=== PATIENT | male | born 1990 | race African-American/Black ===

== ENCOUNTER 2018-10-30 18:41 | Inpatient (IN) | payer MEDICAID ==
[2018-10-30] MEDS ORDERED: OLANZapine DISINTEGR 5 MG TAB PO ONE (19:01)
[2018-10-30 19:10] LABS: PLATELET COUNT 260 10^3/uL (150-400)
--- NOTE | 2018-10-30 20:48 | EDPHY ---
H & P Stated Complaint: SI - M1 Hold. - Personal History Current Tetanus Diphtheria and Acellular Pertussis (TDAP): Unsure - Medical/Surgical History Hx Asthma: No Hx Chronic Respiratory Disease: No Hx Diabetes: No Hx Cardiac Disease: No Hx Renal Disease: No Hx Cirrhosis: No Hx Alcoholism: No Hx HIV/AIDS: No Hx Splenectomy or Spleen Trauma: No Other PMH: Bipolar. Schitzophrenia. Time Seen by Provider: 10/30/18 18:44 HPI/ROS: Chief complaint: Suicidal ideation, on mental health hold History of present illness: This is a 27-year-old male who is brought to the emergency department by EMS and police on a mental health hold. Patient was apparently attempting to gain access to the homeless intermediate for the evening, he was denied injury. Apparently he became upset and started to state he was going to kill himself. He repeated this over and over. On my evaluation he states he does want to kill himself. He states he wants to"cut his head off, put it in a small business banking officer, and port down his neck." As I speak with him he speaks tangentially, it is hard to keep him on track. He does state he has a history of mental health illness, he has been on risperidone and Zyprexa but states he has not taken medication and at least a year. He denies illness or injury. Review of systems: A 10 point review of systems was obtained and other than described above was negative (Channing Grimes) - Physical Exam Exam: General Appearance: Alert, nontoxic. Eyes: Pupils equal and round no pallor or injection. ENT, Mouth: Mucous membranes moist. Respiratory: There are no retractions, lungs are clear to auscultation. Cardiovascular: Regular rate and rhythm. Gastrointestinal: Abdomen is soft and non tender, no masses, bowel sounds normal. Neurological: Alert. Strength and sensation intact and symmetrical. Skin: Warm and dry, no rashes. Musculoskeletal: Neck is supple non tender. Extremities are symmetrical, full range of motion. Psychiatric: Patient appears sad, pressured tangential speech (Channing Grimes) Constitutional: Initial Vital Signs Temperature (C) 36.7 C 10/30/18 18:44 Heart Rate 96 10/30/18 18:44 Respiratory Rate 18 10/30/18 18:44 Blood Pressure 141/102 H 10/30/18 18:44 O2 Sat (%) 95 10/30/18 18:44 O2 Delivery Mode Room Air Allergies/Adverse Reactions: No Known Allergies Allergy (Unverified 10/30/18 18:50) Home Medications: Medication Instructions Recorded Risperdal 10/30/18 Zyprexa 10/30/18 Medical Decision Making ED Course/Re-evaluation: Patient seen under the supervision of my secondary supervising physician Dr. Jimy Valdez. Patient is brought to the emergency department on a mental health hold for suicidal ideation. He is medically cleared for evaluation but there is methamphetamine and cocaine in his system, he will have to be housed overnight to allow this to clear before a mental health evaluation could be performed. Care of patient turned over to my attending physician Dr. Margie [place] at the end of shift. (Channing Grimes) 6:50 a.m.- Patient stable throughout my shift. He is awaiting mental health evaluation which was delayed because of positive urine toxicology. The case is signed out to Dr. Calderon. (Margie [place]) 1605: Patient been accepted by Dr. Garcia. EMTALA form filled out. [facility] transfer will bet set up. (Jimy Valdez) Differential Diagnosis: Included but not limited to substance abuse, anxiety, bipolar, schizophrenia, depression (Channing Grimes) - Data Points Laboratory Results: Laboratory Results 10/30/18 18:50 10/30/18 18:50 Medications Given: Discontinued Medications Olanzapine (Zyprexa Zydis) 10 mg PO EDNOW ONE Stop: 10/30/18 19:02 Last Admin: 10/30/18 19:08 Dose: 10 mg Departure - Departure Disposition: [facility] IP Clinical Impression: Suicidal ideation Condition: Fair Referrals: Patient,NotPresent [Unknown] - As per Instructions
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
--- NOTE | 2018-10-31 16:13 | ASMTTCLDSP ---
TLC Discharge Disposition Disposition: Answers: Admit Discharge Concerns/Recommendations: Notes: In consultation with [facility] ED physician,Dr [place] and on-call psychiatrist, Dr Schwartz , both concurred that Pt does appear to meet 27-65 criteria requiring psychiatric hospitalization as Pt does appear to be an imminent risk of harm to self due to a mental illness condition Was patient given the Answers: Yes Inpatient Behavioral Health Prohibited Belongings List while in the ED? For inpatient Dr Garcia admission, the following psychiatrist agreed to accept patient for admission to Behavioral Health ([facility]): Type of Hold: Answers: Involuntary Transportation Hold Date Signed: 10/31/2018 04:13 PM Electronically Signed By:Sadie Corrales
[2018-10-31] MEDS ORDERED: MAG HYDROX/AL HYDROX/SIMETH 30 ML UDCUP PO PRN (18:30)
[2018-10-31] MEDS ORDERED: OLANZapine DISINTEGR 10 MG TAB PO PRN (18:30)
[2018-10-31] MEDS ORDERED: ACETAMINOPHEN 325 MG TAB PO PRN (18:30)
[2018-10-31] MEDS ORDERED: NICOTINE POLACRILEX 2 MG GUM B PRN (18:30)
[2018-10-31] MEDS ORDERED: MAGNESIUM HYDROXIDE 30 ML UDCUP PO PRN (18:30)
[2018-10-31] MEDS ORDERED: LORazepam 0.5 MG TAB PO PRN ×2 (18:30→18:32)
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
--- NOTE | 2018-11-01 13:35 | ASMTCMCOM ---
CM Note CM Note Notes: CC sent over referral to [facility] for intake appt for out-patient services.* Waiting to hear back.* Date Signed: 11/01/2018 01:35 PM Electronically Signed By:Saulo Fernández
--- NOTE | 2018-11-01 14:19 | PDMN ---
Medical Necessity Medical necessity: Pt meets IP criteria as of 10/31/2018 per and [facility]-IP (Schizophrenia Spectrum Disorders: IP care); est los > 2 mn, pt presents on M1 hold due to being an imminent danger to himself; Hx Schizoaffective disorder, depressive type.
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
--- NOTE | 2018-11-01 17:25 | SOAPPROG ---
SOAP Progress Note Assessment/Plan: Assessment: Plan: Subjective: CTSP due to agitation and demand for AMA discharge. He states, "I don't want your help. I want to leave." I spoke with pt's primary provider, Francisco Javier Carlos who agrees that pt is stable and able to discharge. I asked pt to stay until tomorrow to allow for an adequate discharge plan. He declines. Will d/c AMA at this time. Objective: Vital Signs Temp Pulse Resp BP Pulse Ox 36.8 C 113 H 14 104/62 95 11/01/18 06:00 11/01/18 06:00 11/01/18 06:00 11/01/18 06:00 11/01/18 06:00 ICD10 Worksheet Patient Problems: Problems Problem Status Onset Suicidal ideation Acute
--- NOTE | 2018-11-01 22:21 | BCON ---
INTERNAL MEDICINE CONSULTATION DATE OF CONSULTATION: 11/01/2018 REASON FOR REFERRAL: Medical clearance for inpatient behavioral health stay. HISTORY OF PRESENT ILLNESS: This patient came to the emergency department on an M1 hold brought in by police. He had been denied access to the homeless nursing home two days ago, and he became upset and stated that he was going to kill himself. In the emergency department he was treated with a dose of olanzapine, and further history was able to be obtained. He was evaluated by the mental health team and admitted for further psychiatric care. Currently, he is without any acute complaints. PAST MEDICAL HISTORY: 1. Mental health issues with diagnoses recorded in the chart of schizophrenia and bipolar disorder. 2. Scoliosis. PAST SURGICAL HISTORY: He has had back surgery for scoliosis when he was a child. MEDICATIONS: He was on no medications. He reported he had previously been prescribed risperidone and olanzapine but had not been taking any for approximately a year. SOCIAL HISTORY: He is homeless. He is a former smoker. He denies alcohol use. His drug screen was positive for amphetamines and cocaine, and he reported to Case Management that he uses the amphetamines to stay awake at night as he is homeless. FAMILY HISTORY: Noncontributory. REVIEW OF SYSTEMS: He feels thirsty and hungry. He has pain all over, but it is not debilitating. He denies fevers or chills. He denies cough or dyspnea. He denies nausea, vomiting, constipation, or diarrhea. He denies dysuria or urinary urgency or frequency, and otherwise a 10-point review of systems is negative. PHYSICAL EXAM: VITAL SIGNS: Blood pressure this morning was 104/62, heart rate was 113, respiratory rate was 14, oxygen saturation was 95% on room air. Temperature was 36.8 degrees centigrade. His weight is 109 kg for a body mass index of 29. I am not sure if that weight is correct as he does not appear to be overweight. GENERAL: This is a well-nourished, well-developed man, napping in bed, easily awakened, cooperative and in no acute distress. HEENT: Extraocular movements are intact. Mucous membranes are moist. Dentition is in good condition. NECK: Supple. HEART: There is a regular rate and rhythm with no murmurs, rubs, or gallops. He is tachycardic. LUNGS: Clear to auscultation bilaterally. ABDOMEN: Benign. EXTREMITIES: There is no cyanosis , clubbing, or edema. NEUROLOGIC: He is alert. Orientation was not checked. Cranial nerves 2-12 are grossly intact. There is no focal weakness. Sensation is intact to light touch, and gait is normal. LABORATORY STUDIES: From the emergency department, CBC showed mild anemia with a hemoglobin of 13.4 and hematocrit of 38.2. He was microcytic with an MCV of 78.9. Serum chemistry showed hyponatremia with a sodium of 133. Otherwise renal function, electrolytes, and liver function tests were normal. Toxicology screen in the serum was negative for salicylates, acetaminophen, or ethyl alcohol and in the urine was non-negative for amphetamines and cocaine but otherwise negative for substances of abuse. ASSESSMENT/RECOMMENDATIONS: 1. Mental health issues pending further evaluation per Psychiatry and the mental health team. 2. Tachycardia. Possibly he is dehydrated. Encouraged oral fluid intake and monitor. If he remains tachycardic, would get an EKG. I will add a TSH on to the labs that were drawn two days ago to rule out hyperthyroidism as a contributing etiology. 3. Hyponatremia of unclear etiology. I will encourage normal oral intake, and I will repeat a basic metabolic profile in the morning. 4. Anemia with indices consistent with iron deficiency. I will add an iron panel to the labs that were drawn two days ago, and if he is iron deficient then it would be worthwhile to evaluate for sources of blood loss, primarily from the stomach or the intestines. It is conceivable that he has dietary iron shortage. I see no medical contraindications to this patient's continued stay on the inpatient behavioral health unit or to any psychiatric medications or procedures. Thank you very much for including me in the care of this patient and please do not hesitate to contact me or the hospitalist service should there be need for further medical evaluation. /[id number]/MODL MTDD
[2018-11-02 06:47] VITALS: BP 122/63
--- NOTE | 2018-11-03 16:34 | BDS ---
REASON FOR ADMISSION: Patient is a 27-year-old male admitted from the emergency department after police brought him in on an M1 hold by police. They stated he was trying to access a homeless senior living for the evening and was denied. He became angry and threatened to kill himself. He apparently stated he was going to "cut his head off, put it in a clinical research physician and pour it down his neck." He was noted to be somewhat disorganized and agitated in the ER and said that he was supposed to have been taking psychotropic medications, that he was not. He was admitted to the Behavioral Services inpatient unit on an M1 hold for further evaluation. Full description of the events preceding admission can be found in Francisco Javier Hernandez's admission history, dated 11/01/2018. Admission diagnosis per Francisco Javier Hernandez, nurse-practitioner, stimulant use disorder amphetamine type, cannabis use disorder, severe, homelessness, substance induced mood disorder. ADMITTING PHYSICAL EXAMINATION: Performed by Dr. Jaime Kenney, revealed tachycardia, mild hyponatremia, possible iron deficiency anemia. No acute physical findings. ADMISSION LABORATORY: CBC shows an H and H down at 13.4 and 38.2 with an MCV low at 78.9. Serum sodium is low at 133. Total iron is low at 31, TIBC is normal at 366, iron saturation was low at 8. Liver function was normal. Cholesterol was low at 135, remainder of lipids were normal. TSH was normal at 1.55. Urine drug screen was positive for amphetamines and cocaine. HOSPITAL COURSE: Patient admitted to behavioral health services inpatient unit on an M1 hold. He was agitated and under the influence of several drugs, including cocaine and amphetamines. He was somewhat disorganized, perhaps slightly paranoid and was noncompliant with initial interviews. He was seen by Francisco Javier Hernandez, Nurse practitioner, earlier in the day and refused most of that interview. I talked to him casually after that and he was minimally interactive. Later in the evening, he ate dinner and I was still there after he completed his meal. He requested discharge at that time, and I interviewed him again. He then was more cooperative, stating that he did not need to be in the hospital, was not suicidal. He stated "I might want help, but I do not want your help." He was offered the opportunity to remain in the hospital several times, but declined. I did not believe he met criteria for ongoing involuntary hospitalization. Because he declined to stay long enough to allow discharge planning I wrote an AMA discharge. He stated that he was aware of the implication of an AMA discharge and "I won't be getting anything." I indicated to him that this did not mean he was ineligible for future services, but that we no longer felt like he met criteria for involuntary hospitalization , but we are offering him voluntary hospitalization until we could at least make outpatient arrangements the next day. After this conversation, the patient went to his room, showered, and went to sleep. He remained asleep until after midnight and so the nurse did not execute the discharge order at that time. When he arose the next morning, he again requested discharge. Nursing staff executed the AMA discharge order and he was released. CONDITION AT DISCHARGE: Stable. His affect was euthymic, stable and appropriate. He was no longer exhibiting any evidence of paranoia and was no longer agitated. He stated he was happy to leave the hospital and resume his normal life. DISCHARGE MEDICATIONS: None. DISCHARGE DIAGNOSES: 1. Amphetamine use disorder, severity unknown. 2. Cocaine use disorder, severity unknown. 3. Homelessness, possible malingering. DISCHARGE DISPOSITION: Patient was released from the hospital against medical advice and allowed to leave prior to formulation of any discharge appointments. FOLLOWUP: None was given. LEGAL COURSE: Patient left prior to the expiration of his M1 hold. There are no pending labs or studies at time of discharge. Added to, patient was happy to leave the hospital. The patient was full code throughout his stay. The patient was given no instructions as he had no outpatient appointments. The patient was noncooperative with nicotine, alcohol, cannabis, and metabolic screenings. /[id number]/MODL MTDD
== END 2018-11-02 09:13 | disposition left against medical advice (07) | DRG 770 ==
LOC: BBEH 10-31 18:10
PROVIDERS: ADMIT Psychiatry & Neurology Psychiatry; ATTEND Psychiatry & Neurology Psychiatry
DX: F15.94 Other stimulant use, unspecified with stimulant-induced mood disorder (principal); F14.94 Cocaine use, unspecified with cocaine-induced mood disorder; F12.988 Cannabis use, unspecified with other cannabis-induced disorder; M41.9 Scoliosis, unspecified; Z76.5 Malingerer [conscious simulation]; F20.9 Schizophrenia, unspecified; F31.9 Bipolar disorder, unspecified; Z59.0 Homelessness; Z56.0 Unemployment, unspecified; Z87.891 Personal history of nicotine dependence
CPT/HCPCS: 80305; G0480

== ENCOUNTER 2018-11-28 09:15 | Emergency (ER) | payer MEDICAID ==
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
[2018-11-28] MEDS ORDERED: OLANZapine DISINTEGR 5 MG TAB PO ONE (09:27)
[2018-11-28 09:33] LABS: PLATELET COUNT 291 10^3/uL (150-400)
[2018-11-28] MEDS ORDERED: OLANZapine DISINTEGR 5 MG TAB ONE (09:34)
--- NOTE | 2018-11-28 21:20 | ASMTLCPROG ---
Notes Note: Notes: Met with this pt to attempt a psychiatric evaluation as he was up and eating dinner. Pt's speech is rambling and pressured -talking about rap music, being called the N word - when asked if he was suicidal, he replied yes and was working on a plan. Pt was hospitalized on [facility] 2 weeks ago and refused treatment at that time and was discharged AMA by Dr Ortiz. When reminded of this, he said that he was willing to have treatment - to have "someone at my disposal to discuss my feelings with" and was open to the possibility of medication. Pt to be evaluated in the AM. Date Signed: 11/28/2018 09:19 PM Electronically Signed By:Pina Beck
[2018-11-29 08:03] VITALS: BP 113/90
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
--- NOTE | 2018-11-29 11:27 | ASMTTCLDSP ---
T[facility] Discharge Disposition Disposition: Answers: Discharge If Answers: Yes DISCHARGED: Patient/family given suicide hotline info & SAMHSA brochure? Disposition Notes: Notes: Pt stated commitment or ability to keep self safe, denied thoughts of self harm or harm to others. Pt expressed a desire to f/u with [facility]. Pt was provided with cab voucher to [facility]. Pt was given local hotline information and SAMHSA brochure After an Attempt and encouraged to follow up with [facility]. Discharge Concerns/Recommendations: Notes: In consultation with [facility] ED physician, Moy Peterson MD, Dr. Peterson concurred that pt does not appear to meet 27-65 criteria requiring psychiatric hospitalization as pt does not appear to be an imminent risk of harm to self/others/gravely disabled due to a mental illness condition. Dr. Peterson provided verbal order read back vacating M1 hold at 1100 hrs. Was patient given the Answers: Not applicable Inpatient Behavioral Health Prohibited Belongings List while in the ED? Psychiatrist vacating M1 Moy Peterson MD Hold: Date and time M1 hold 11/29/2018 11:00 AM vacated (time format is hh:mm): Type of Hold: Answers: M1/72-hour Hold Date Signed: 11/29/2018 11:27 AM Electronically Signed By:Jackson Dang
== END 2018-11-29 11:39 | disposition home or self-care (01) ==
DX: R45.851 Suicidal ideations (principal); F20.89 Other schizophrenia; Z59.0 Homelessness
CPT/HCPCS: 80305; G0480

== ENCOUNTER 2018-11-30 00:56 | Emergency (ER) | payer MEDICAID ==
--- NOTE | 2018-11-30 01:04 | EDPHY ---
H & P Stated Complaint: SI Time Seen by Provider: 11/30/18 01:01 HPI/ROS: HPI The patient presents WITH SUICIDAL IDEATION. [facility] and said that he was feeling suicidal and that he wanted to kill himself and everyone else. 911 was called and police responded. He was placed on an M1 hold. The patient tells me that he does feel like he wants to kill himself but does not have a plan. This is making him want to kill all people. He makes comments about the IlluminatiAnthony. REVIEW OF SYSTEMS 10 systems were reviewed and negative with the exception of the elements mentioned in the history of present illness. PMHx: Per her prior mental health evaluation patient's diagnoses are stimulant use disorder, cannabis use disorder, homelessness, substance induced mood disorder Soc Hx: Homelessness, history of methamphetamine abuse PHYSICAL General Appearance: Alert, no distress Eyes: Pupils equal and round no pallor or injection ENT, Mouth: Mucous membranes moist Respiratory: There are no retractions, lungs are clear to auscultation Cardiovascular: Regular rate and rhythm Gastrointestinal: Abdomen is soft and non-tender, no masses, bowel sounds normal Neurological: A&O, moves all extremities Skin: Warm and dry, no rashes Musculoskeletal: Neck is supple non tender Extremities: symmetrical, full range of motion Psychiatric: Patient is oriented X 3, there is no agitation Source: Patient, Police, Old records Exam Limitations: No limitations - Medical/Surgical History Hx Asthma: No Hx Chronic Respiratory Disease: No Hx Diabetes: No Hx Cardiac Disease: No Hx Renal Disease: No Hx Cirrhosis: No Hx Alcoholism: No Hx HIV/AIDS: No Hx Splenectomy or Spleen Trauma: No Other PMH: Bipolar. Schitzophrenia. - Social History Smoking Status: Former smoker Allergies/Adverse Reactions: No Known Allergies Allergy (Unverified 11/28/18 09:24) Home Medications: Medication Instructions Recorded Unobtainable 10/31/18 Medical Decision Making Differential Diagnosis: Assessment: This is a 27-year-old man with history of homelessness, polysubstance abuse, substance induced mood disorder who presents brought in by police on an M1 hold for suicidal ideation. Patient was discharged from the emergency department about 12 hr ago after being placed on an M1 hold for SI. He was thought to be malingering and using meth. He has been admitted to [address] [place] [address] last month. Differential diagnosis: Meth induced psychosis causing SI, underlying depression with suicidal ideation, psychosis related to underlying schizophrenia. ED course: 1:14 a.m.- I discussed the patient's presentation with the police and met the patient. He is requesting Zyprexa and I will order this for him. We will check basic labs. 5:28 a.m.- Patient slept for the duration of his ED stay. Labs were unremarkable common urine toxicology was not obtained. Patient was evaluated by mental health who will drop the M1 hold. Patient is not deemed suicidal at this time. There is concern for malingering behavior. He has been admitted to [address] [place] [address] and was diagnosed with no mental illness, rather substance abuse issues. He will be discharged at this time. Departure - Departure Disposition: Home, Routine, Self-Care Clinical Impression: Homelessness, Malingering, Methamphetamine abuse Condition: Good Instructions: Methamphetamine Abuse (ED) Additional Instructions: Please avoid using drugs. Referrals: [facility] [Clinic] - As per Instructions
[2018-11-30] MEDS ORDERED: OLANZapine DISINTEGR 10 MG TAB ONE (01:16)
[2018-11-30 06:24] VITALS: BP 107/47
[2018-11-30 06:44] LABS: PLATELET COUNT 274 10^3/uL (150-400)
== END 2018-11-30 06:10 | disposition home or self-care (01) ==
DX: F15.10 Other stimulant abuse, uncomplicated (principal); Z76.5 Malingerer [conscious simulation]; F31.9 Bipolar disorder, unspecified; F20.9 Schizophrenia, unspecified; Z59.0 Homelessness; Z87.891 Personal history of nicotine dependence